=== PATIENT | male | born 2005 | race Caucasian/White ===

== ENCOUNTER 2023-08-23 18:03 | Outpatient (CLI) | payer BC, MEDICAID, SELFPAY | END 2023-08-23 18:04 | disposition home or self-care (01) | LOC: LKVREF 18:03 | PROVIDERS: PCP Pediatrics; Visit Provider Physician Assistant | DX: R50.9 Fever, unspecified (principal); R21 Rash and other nonspecific skin eruption; L03.90 Cellulitis, unspecified | CPT/HCPCS: 86618 ==

== ENCOUNTER 2023-08-23 23:07 | Emergency (ER) | payer BC, MEDICAID, SELFPAY ==
[2023-08-23 23:11] VITALS: BP 117/81; PULSE 98; RESP 16; TEMP 37.9; O2SAT 98; BMI 17.7
--- NOTE | 2023-08-23 23:35 | ED_ITS ---
HPI - Fever General Time Seen by Provider: 23:35 Date Seen: 08/23/23 Chief Complaint: Fever Stated Complaint: Fever Time Seen by Provider: 08/23/23 23:34 Source: patient, family, RN notes reviewed and old records reviewed Mode of arrival: ambulatory Limitations: no limitations History of Present Illness HPI Narrative: Samuel is a very pleasant 17-year-old gentleman previously healthy who comes to the emergency room for a 2nd opinion in regards to a rash in fevers. Patient is also concerned about some neck pain. Samuel states 1 week ago he had a very large golf ball size lymph node in his right groin. He had no urinary symptoms but did develop cold-like symptoms which she describes as a fever. He had no runny nose cough sore throat or ear pain. He notes that he has been running a fever up to 102 at times intermittently over the last week. He notes that he had sustained many bug bites after exploring caves and being outside in the rain 1 week ago. Those bug bites which continue to be itchy have now become very red on his whole body. He has a oval-shaped rash on his abdomen and the area on his groin where the large lymph node had been is red. The swelling of the lymph node has receded somewhat. Patient notes that he does have a headache and when E occasionally coughs that seems to be worse. He has some neck pain but he is able to move his neck freely. Patient was seen this morning at urgent care at which time he was given doxycycline and had blood drawn to include a CBC and a Lyme titer. He has not yet started on his doxycycline and would like a 2nd opinion. Related Data Previous Rx's ?Medication ?Instructions ?Recorded doxycycline hyclate 100 mg capsule 100 mg PO BID 14 days #28 caps 08/23/23 Allergies Allergy/AdvReac Type Severity Reaction Status Date / Time pitted Dates AdvReac Severe Anaphylaxis Uncoded 08/23/23 17:25 Review of Systems Status of ROS Reports: 10 or more systems reviewed and unremarkable except as noted in History and below Const Reports: fever and fatigue Eyes Denies: change in vision ENMT Reports: neck pain (Stiffness more than pain); Denies: throat pain, difficulty swallowing or nasal congestion Cardio Denies: chest pain or shortness of breath with exertion Resp Denies: shortness of breath or cough GI Denies: abdominal pain, nausea, vomiting, diarrhea or difficulty swallowing Denies: painful urination or urinary frequency Musculo Reports: neck pain (Stiffness more than pain); Denies: back pain Integ/Breast Reports: rash, itching and redness Neuro Reports: headache (Mild) Endo Reports: fatigue PFSH [facility] Social History Smoking Status: Never smoker service: No Exam Narrative Exam Narrative: Alert and oriented. Nontoxic in appearance. Eyes are clear. Oral cavity with moist mucous membranes. Neck is supple. No lymphadenopathy. Range of motion is full with no stiffness. No meningeal signs with negative straight leg raise. Patient is able to put chin to chest and look up at light without any evidence of photophobia. Heart with regular rate and rhythm and lungs are clear to auscultation. Abdomen soft nontender. Patient has area of lymphadenopathy mild right groin. He has a large area of erythema extending across the entire groin onto the left hip. This is a had rectangle in shape. It is not excessively warm to the touch it is well demarcated. On his right abdomen he has an ovoid shaped area of erythema that is resembling a bull's-eye. This is measuring 4- 1/2 x 8 cm. This is very subtle. He has other areas of erythema with a central area that appears to be elevated such as would occur with a bug bite. No LAD cervical, axillary. Const Vital Signs, click to edit/add: Vital Signs - 24 hr 08/23/23 23:11 08/24/23 00:30 08/24/23 01:16 Temperature 100.2 F H Pulse Rate [Left Pulse Oximeter] 98 68 68 Respiratory Rate 16 16 16 Blood Pressure [Right Upper Arm] 117/81 113/69 108/74 Pulse Oximetry 98 99 100 Oxygen Delivery Method Room Air Room Air Room Air Documenting provider has reviewed patient's vital signs: yes Course Course ED Course: Differential diagnosis includes but is not limited to Lyme disease, West Nile, other viral infection. He has no meningeal signs in spite of his complain of neck stiffness any is full range of motion and thus I do not think we are dealing with meningitis. Will check labs not done this morning to include comprehensive, CRP, West Nile, urinalysis, GC chlamydia. An EKG is ordered for baseline. Will give 1L NS fluids, Toradol for discomfort. Reevaluation(s) Reevaluation #1: Patient has had resolution of his headache. He did receive fluids. At this time will have him take his dose of doxycycline as I strongly suspect that this is Lyme disease. Vital Signs Vital signs: Initial Vital Signs Temperature 100.2 F H 08/23/23 23:11 Temperature Source Temporal Artery Scan 08/23/23 23:11 Pulse Rate 98 08/23/23 23:11 Pulse Rhythm Regular 08/23/23 23:11 Respiratory Rate 16 08/23/23 23:11 Blood Pressure 117/81 08/23/23 23:11 Blood Pressure Mean 93 08/23/23 23:11 Blood Pressure Position Sitting 08/23/23 23:11 Pulse Oximetry 98 08/23/23 23:11 Oxygen Delivery Method Room Air 08/23/23 23:11 Vital Signs Temperature 100.2 F H 08/23/23 23:11 Pulse Rate 98 08/23/23 23:11 Respiratory Rate 16 08/23/23 23:11 Blood Pressure 117/81 08/23/23 23:11 Pulse Oximetry 98 08/23/23 23:11 Oxygen Delivery Method Room Air 08/23/23 23:11 Temperature 100.2 F H 08/23/23 23:11 Pulse Rate 68 08/24/23 01:16 Respiratory Rate 16 08/24/23 01:16 Blood Pressure 108/74 08/24/23 01:16 Pulse Oximetry 100 08/24/23 01:16 Oxygen Delivery Method Room Air 08/24/23 01:16 Medications Administered Medications: Discontinued Medications Generic Name Dose Route Start Last Admin Trade Name Freq PRN Reason Stop Dose Admin Sodium Chloride 1,000 mls @ 1,000 mls/hr 08/23/23 23:38 08/24/23 01:00 0.9 % Sodium Chloride 1000 Ml IV 08/24/23 00:37 Infused .Q1H ALFREDO Infusion Ketorolac Tromethamine 15 mg 08/23/23 23:38 08/24/23 00:00 Ketorolac 15 Mg/Ml Inj IVP 08/23/23 23:39 15 mg ONCE ONE Administration MDM - Fever MDM Narrative Medical decision making narrative: 1. Concern for Lyme disease-bull's-eye rash on right abdomen all suspicious for Lyme. I have asked patient to start the doxycycline which she has with him from his earlier old urgent care visit. Patient has a 14 day course of treatment. I have added a tick-borne panel to patient's lab orders. He did have Lyme done this morning at the clinic. We have also added West Nile. 2. Neck stiffness-this is subjective and patient has no meningeal signs here in the emergency room. Further his white count is normal. CRP is elevated at 7.1. Patient is entirely nontoxic in appearance. Toradol has relieved his headache any is feeling better. He also received 1 L of normal saline. 3. Right groin lymphadenopathy-erythema noted. Not exactly cellulitic type appearance. Have added GC chlamydia to this gentleman's urine. Although I suspect that is more related to his illness which I believe is tick-borne. 4. Disposition-home at this time. Rest push fluids. Ibuprofen or Tylenol as needed for discomfort. Await the tick panel and Lyme a results. Seek medical attention for worsening symptoms. I will have this gentleman follow up with his primary MD in a week's time to ensure resolution of the lymphadenopathy and improvement of his symptoms. Lab Data Attestation: I reviewed the patient's lab results. Labs: Lab Results 08/24/23 08/24/23 08/24/23 Range/Units 00:00 01:08 01:11 WBC 9.80 (4.50-11.00) K/uL RBC 5.72 (4.30-5.90) m/uL Hgb 16.9 (13.5-17.5) gm/dL Hct 49.2 (37.0-53.0) % MCV 86 (80-100) fL MCH 30 (26-34) pg MCHC 34 (32-36) gm/dL RDW Coeff of Eugenio 11.9 (11.5-15.5) % Plt Count 279 (140-440) K/uL Neut % (Auto) 74.8 H (42.0-72.0) % Lymph % (Auto) 16.0 L (20-44) % Divide % (Auto) 8.6 (0.0-11.0) % Eos % (Auto) 0.3 (0.0-7.0) % Baso % (Auto) 0.1 (0.0-3.0) % Neut # (Auto) 7.30 H (1.7-7.0) K/uL Lymph # (Auto) 1.60 (0.90-2.90) K/uL Divide # (Auto) 0.80 (0.00-0.90) K/UL Eos # (Auto) 0.03 (0.00-0.50) K/uL Baso # (Auto) 0.01 (0.00-0.30) K/uL Abs Immat Gran (auto) 0.02 (0.00-0.30) K/uL Imm/Tot Granulo (auto) 0.2 % Sodium 140 (135-149) mmol/L Potassium 3.9 (3.6-5.1) mmol/L Chloride 104 (96-114) mmol/L Carbon Dioxide 23 (20-32) mmol/L Anion Gap 13 (7-15) mEq/L BUN 11 (5-24) mg/dL Creatinine 0.6 (0.6-1.2) mg/dL Estimated Creat Clear 127.30 Estimated GFR 143 ml/min Glucose 102 (60-115) mg/dL Calcium 9.4 (8.7-10.8) mg/dL Total Bilirubin 1.1 (0.1-1.5) mg/dL AST 46 H (12-35) U/L ALT 30 (4-50) U/L Alkaline Phosphatase 84 (65-260) U/L C-Reactive Protein 7.1 H (0.5-1.0) mg/dL Total Protein 8.5 H (6.0-8.3) g/dL Albumin 5.1 H (3.3-5.0) g/dL Urine Color (Yellow) Urine Appearance (Clear) Urine pH (5.0-8.5) Ur Specific [place] (1.000-1.030) Urine Protein (Negative) Urine Glucose (UA) (Negative) Urine Ketones (Negative) Urine Blood (Negative) Urine Nitrite (Negative) Urine Bilirubin (Negative) Urine Urobilinogen (0.2-1.0) Ur Leukocyte Esterase (Negative) Urine RBC (0-2) Urine WBC (0-5) Ur Squamous Epith Cells (None-Few) Amorphous Sediment (None) Urine Bacteria (None) Urine Mucus (None) C.trachomatis Ampl DNA (No Detected) N.gonorrhoeae Ampl DNA (No Detected) Lab Acknowledgement Test Added Test Added 08/24/23 Range/Units 01:50 WBC (4.50-11.00) K/uL RBC (4.30-5.90) m/uL Hgb (13.5-17.5) gm/dL Hct (37.0-53.0) % MCV (80-100) fL MCH (26-34) pg MCHC (32-36) gm/dL RDW Coeff of Eugenio (11.5-15.5) % Plt Count (140-440) K/uL Neut % (Auto) (42.0-72.0) % Lymph % (Auto) (20-44) % Divide % (Auto) (0.0-11.0) % Eos % (Auto) (0.0-7.0) % Baso % (Auto) (0.0-3.0) % Neut # (Auto) (1.7-7.0) K/uL Lymph # (Auto) (0.90-2.90) K/uL Divide # (Auto) (0.00-0.90) K/UL Eos # (Auto) (0.00-0.50) K/uL Baso # (Auto) (0.00-0.30) K/uL Abs Immat Gran (auto) (0.00-0.30) K/uL Imm/Tot Granulo (auto) % Sodium (135-149) mmol/L Potassium (3.6-5.1) mmol/L Chloride (96-114) mmol/L Carbon Dioxide (20-32) mmol/L Anion Gap (7-15) mEq/L BUN (5-24) mg/dL Creatinine (0.6-1.2) mg/dL Estimated Creat Clear Estimated GFR ml/min Glucose (60-115) mg/dL Calcium (8.7-10.8) mg/dL Total Bilirubin (0.1-1.5) mg/dL AST (12-35) U/L ALT (4-50) U/L Alkaline Phosphatase (65-260) U/L C-Reactive Protein (0.5-1.0) mg/dL Total Protein (6.0-8.3) g/dL Albumin (3.3-5.0) g/dL Urine Color Yellow (Yellow) Urine Appearance Clear (Clear) Urine pH 6.5 (5.0-8.5) Ur Specific [place] >= 1.030 (1.000-1.030) Urine Protein 1+ A (Negative) Urine Glucose (UA) Negative (Negative) Urine Ketones 3+ A (Negative) Urine Blood Negative (Negative) Urine Nitrite Negative (Negative) Urine Bilirubin 1+ A (Negative) Urine Urobilinogen 0.2 (0.2-1.0) Ur Leukocyte Esterase Negative (Negative) Urine RBC 0-2 (0-2) Urine WBC 2-5 (0-5) Ur Squamous Epith Cells Moderate A (None-Few) Amorphous Sediment Few A (None) Urine Bacteria Moderate A (None) Urine Mucus Moderate A (None) C.trachomatis Ampl DNA NOT DETECTED (No Detected) N.gonorrhoeae Ampl DNA NOT DETECTED (No Detected) Lab Acknowledgement ECG Data Attestation: I personally reviewed and interpreted this ECG as follows: ECG interpretation date: 08/24/23 Interpretation: EKG by my read shows sinus rhythm at a rate of 78. Early repolarization is noted otherwise no acute ST or T-wave changes. QT and DE intervals within normal limits. Discharge Plan Discharge Clinical Impression: Lyme borreliosis Patient Disposition: Home, Self-Care Condition: Improved Additional Instructions: Continue to take doxycycline for the full course even when you are feeling better. I would like you to follow-up at the clinic in the next 5-7 days for recheck. Be sure to call for an appointment tomorrow. Recommend ibuprofen or Tylenol as needed for discomfort. I have added additional tests on for tick-borne illnesses in addition to Lyme as well as West Nile which is spread by mosquitos. I have also added some urinary test for the lymph node swelling but I suspect this is likely related to the underlying tick borne illness. Try to push fluids as much as possible. Return to the emergency room if you are worsening. Prescriptions: No Action doxycycline hyclate 100 mg capsule 100 mg PO BID 14 Days Qty: 28 0RF Follow Up/Referrals: Shira Luna DO [Referring] - Stand Alone [facility] Inst[facility]
[2023-08-24] MEDS: 0.9 % SODIUM CHLORIDE 1000 ml 1,000 ML IV
[2023-08-24] MEDS: KETOROLAC 15 MG/ML inj IVP
[2023-08-24 00:08] LABS: Basophils Absolute Auto 0.01 K/uL (0.00-0.30); Basophils Percent Auto 0.1 % (0.0-3.0); Eosinophils Absolute Auto 0.03 K/uL (0.00-0.50); Eosinophils Percent Auto 0.3 % (0.0-7.0); Hematocrit 49.2 % (37.0-53.0); Hemoglobin* 16.9 gm/dL (13.5-17.5); Immature Granulocytes Abs Auto 0.02 K/uL (0.00-0.30); Immature Granulocytes Pct Auto 0.2 %; Mean Corpuscular HGB Conc 34 gm/dL (32-36); Mean Corpuscular Hemoglobin 30 pg (26-34); Mean Corpuscular Volume 86 fL (80-100); Monocytes Percent Auto 8.6 % (0.0-11.0); Neutrophils Percent Auto 74.8 % (42.0-72.0); Platelet Count* 279 K/uL (140-440); RDW Coefficient of Variation % 11.9 % (11.5-15.5); Red Blood Count 5.72 m/uL (4.30-5.90)
[2023-08-24 00:15] LABS: Slide Review Reflex No
[2023-08-24 00:24] LABS: Albumin* 5.1 g/dL (3.3-5.0); Chloride* 104 mmol/L (96-114)
[2023-08-24 00:25] LABS: Potassium* 3.9 mmol/L (3.6-5.1); Sodium* 140 mmol/L (135-149)
[2023-08-24 00:27] LABS: Anion Gap 13 mEq/L (7-15); Aspartate Amino Transferase* 46 U/L (12-35); Bilirubin Total* 1.1 mg/dL (0.1-1.5); Carbon Dioxide* 23 mmol/L (20-32); Creatinine* 0.6 mg/dL (0.6-1.2); Estimated Glomerular Filt Rate 143 ml/min; Total Protein* 8.5 g/dL (6.0-8.3)
[2023-08-24 00:28] LABS: Alanine Aminotransferase* 30 U/L (4-50); Alkaline Phosphatase* 84 U/L (65-260); Blood Urea Nitrogen* 11 mg/dL (5-24); Calcium* 9.4 mg/dL (8.7-10.8); Glucose* 102 mg/dL (60-115)
[2023-08-24 00:30] VITALS: BP 113/69; PULSE 68; RESP 16; O2SAT 99
--- NOTE | 2023-08-24 01:12 | ED.NURSE ---
pt given sandwich, applesauce and water to take with his medication.
[2023-08-24 01:16] VITALS: BP 108/74; PULSE 68; RESP 16; O2SAT 100
[2023-08-24 01:35] LABS: C Reactive Protein* 7.1 mg/dL (0.5-1.0)
[2023-08-24 02:00] LABS: Appearance Urine Clear (Clear); Bilirubin Urine 1+ (Negative); Blood Urine Negative (Negative); Color Urine Yellow (Yellow); Glucose Urine Negative (Negative); Ketones Urine 3+ (Negative); Leukocyte Esterase Urine Negative (Negative); Nitrite Urine Negative (Negative); Protein Urine 1+ (Negative); Specific Gravity Urine >= 1.030 (1.000-1.030); Urobilinogen Urine 0.2 (0.2-1.0); pH Urine 6.5 (5.0-8.5)
[2023-08-24 02:07] LABS: Amorphous Sediment Urine Few; Bacteria Urine Moderate; Mucus Urine Moderate; RBC Urine 0-2 (0-2); Squamous Epithelial Cell Urine Moderate (None-Few)
[2023-08-24 03:28] LABS: Chlamydia DNA Amplified* NOT DETECTED (No Detected); GC DNA Amplified* NOT DETECTED (No Detected)
[2023-08-26 22:51] LABS: Anaplasma phagocyt PCR Not Detected; Babesia microti by PCR Not Detected; Babesia species by PCR Not Detected; Ehrlichia chaffeensis by PCR Not Detected; Ehrlichia ewingii/canis by PCR Not Detected; Ehrlichia muris-like by PCR Not Detected
== END 2023-08-24 02:07 | disposition home or self-care (01) ==
PROVIDERS: Emergency Provider Family Medicine
DX: A69.20 Lyme disease, unspecified (principal)
CPT/HCPCS: 36415; 80053; 81001; 85025; 86140; 86618; 86789; 87086; 87468; 87469; 87484; 87491; 87591; 87798; 93005; 96361; 96374; 99284; 99285; J1885; J7030

== ENCOUNTER 2024-11-10 01:55 | Emergency (ER) | payer OTHER, SELFPAY ==
--- OUTSIDE RECORDS SUMMARY | 2024-11-10 01:58 | XMS_ITS | Clinical Summary ---
Author Organization [facility] Address [address] [place] [address] Care Team Providers Care Barrel Waterer Name Role Phone Shira Luna DO Primary Care Provider [phone] Allergies Active Allergy Reactions Criticality Noted Date Comments Sheila Coreas 08/23/2023 Medications No known medications Active Problems Problem Noted Date Diagnosed Date Liver injury 12/30/2018 Acetaminophen overdose, inte ntional self-harm, initial encounter 12/27/2018 Social History Tobacco Use Types Packs/Day Years Used Date Smoking Tobacco: Never Smokeless Tobacco: Never Tobacco Cessation:Counseling Given: Not Answered Adolescent Education Answer Date Record ed Getting School Help Needed Not on file 08/22 Sex and Gender Information Value Date Recorded Sex Assigned at Not on file Legal Sex Male 3:22 PM CDT Gender Identity Not on file Sexual Orientation Not on file Last Filed Vital Signs Vital Sign Reading Time Taken Comments Blood Pressure 125/76 08/03/2024 6:00 PM CDT Pulse 99 08/03/2024 6:00 PM CDT Temperature 38.3 C (100.9 F) 08/03/2024 6:00 PM CDT Respiratory Rate 16 08/03/2024 6:00 PM CDT Oxygen Saturation 97% 08/03/2024 6:00 PM CDT Inhaled Oxygen Concentration - - Weight 50 kg (110 lb 3.2 oz) 08/03/2024 6:00 PM CDT Height 162.6 cm (5' 4) 08/03/2024 6:00 PM CDT Body Mass Index 18.92 08/03/2024 6:00 PM CDT Plan of Treatment Health Maintenance Due Date Last Done Comments ADVANCE CARE PLANNING 2003 ANNUAL REVIEW OF HM ORDERS 2003 YEARLY PREVENTIVE VISIT 11/17/2006 HPV VACCINE (2 - Male 2-dose series) 08/02/2016 02/02/2016 HIV SCREENING 11/17/2018 MENINGITIS B VACCINE (1 of 2 - Standard) 2019 HEPATITIS C SCREENING 11/17/2021 PHQ-2 (once per calendar year) 2024 COVID-19 VACCINE (3 - season) 2024 07/15/2020, 06/28/2020 INFLUENZA VACCINE (#1) 2024 9, 06/06/2006, 02/02/2006 DTAP/TDAP/TD VACCINE (7 - Td or Tdap) 02/01/2026 02/02/2016, 10/25/2008, 06/06/2006, Additional history exists ZOSTER VACCINE (1 of 2) 11/17/2053 HEPATITIS B VACCINE Completed 05/06/2005, 07/01/2004, 04/27/2004, Additional history exists PNEUMOCOCCAL VACCINE: PEDIATRICS (0 to 5 YEARS) AND AT-RISK PATIENTS (6 to 49 YEARS) Aged Out 05/06/2005, 07/01/2004, 04/27/2004, Additional history exists No longer eligible based on patient's age to complete this topic MENINGITIS VACCINE Aged Out 02/02/2016 No longer eligible based on patient's age to complete this topic Insurance [place] OF [place] [facility] Care Teams Barrel Waterer Relationship Specialty Start Date End Date Shira Luan DO [facility] [id number] [place] [address] PCP - General 08/24/17
[2024-11-10 02:00] VITALS: BP 132/80; PULSE 100; RESP 20; TEMP 36.9; O2SAT 99; BMI 18.9
--- NOTE | 2024-11-10 02:05 | ED.GENADULT ---
HPI - General Adult General Chief complaint: Shortness of Breath/Dyspnea Stated complaint: shortness of breath Time Seen by Provider: 11/10/24 02:00 History of Present Illness HPI narrative: CC: Shortness of Breath pt. with shortness of breath that started around 1900 11/09/24. denies cough, fevers. 18-year-old young man presenting to the emergency department with concern shortness of breath. Infers initially that he does have asthma. Seems to have started around 7:00 p.m. about 7 hours prior to presentation here today. During further conversation though he does offer that at around 4:00 p.m. he had done a small amount of cocaine and then around 5:00 p.m. took without was ketamine. It burned in a way that was unexpected more like MDMA he thought. Called the person he got it from who assured him that it was real ketamine. He notes that typically does not use anything but marijuana but has tried a variety of substances over the years. He says he is not usually this careless. Is not really having chest pain. Does endorse that his heart is beating hard. Related Data Previous Rx's ?Medication ?Instructions ?Recorded dextroamphetamine-amphetamine 20 20 mg PO QDAY #30 tabs 11/09/24 mg tablet Allergies Allergy/AdvReac Type Severity Reaction Status Date / Time pitted Dates AdvReac Severe Anaphylaxis Uncoded 08/08/24 09:54 Review of Systems Status of ROS: Reports: 6 or more systems reviewed and unremarkable except as noted in History and below [facility] Medical History History of Lyme disease ?Z86.19 - Personal history of other infectious and parasitic diseases (ICD-10) Social History Smoking Status: Current some day smoker Do you use any of these nicotine containing products: Vaping Products Second hand tobacco smoke exposure: No How often do you have a drink containing alcohol: never AUDIT-C Alcohol total score: 0 Non-prescribed substance use: marijuana (any form) service: No Exam Narrative: Exam Narrative: Calm. Intermittent eye contact. At times a little distracted in conversation. Speaks quietly. Hair is dark with bleached patch in the left front. Pupils are 4 mm and equal. Skin is warm and dry without lesions. Lungs are clear. Heart is in an elevated to tachycardic rate. No murmur rub or gallop. Does appear to be hyperdynamic. Equal pulses in upper extremities. Oropharynx is unremarkable. Const: Vital Signs, click to edit/add: Vital Signs - 24 hr 11/10/24 02:00 11/10/24 05:09 11/10/24 05:10 Temperature 98.4 F 98.4 F 98.4 F Pulse Rate [Right Pulse Oximeter] 100 98 98 Respiratory Rate 20 20 20 Blood Pressure [Ri ght Upper Arm] 132/80 129/74 129/74 Pulse Oximetry 99 99 Oxygen Delivery Me thod Room Air Room Air Documenting provider has reviewed patient's vital signs: yes Course Vital Signs Vital signs: Initial Vital Signs Respiratory Effort Normal, Spontaneous, Non-Labored 11/10/24 01:56 Respiratory Depth Normal 11/10/24 01:56 Respiratory Pattern Normal 11/10/24 01:56 Vital Signs Temperature 98.4 F 11/10/24 02:00 Pulse Rate 100 11/10/24 02:00 Respiratory Rate 20 11/10/24 02:00 Blood Pressure 132/80 11/10/24 02:00 Pulse Oximetry 99 11/10/24 02:00 Oxygen Delivery Method Room Air 11/10/24 02:00 Temperature 98.4 F 11/10/24 05:10 Pulse Rate 98 11/10/24 05:10 Respiratory Rate 20 11/10/24 05:10 Blood Pressure 129/74 11/10/24 05:10 Pulse Oximetry 99 11/10/24 05:09 Oxygen Delivery Method Room Air 11/10/24 05:09 Medical Decision Making MDM Narrative Medical decision making narrative: Symptoms do not seem inconsistent with substance use as discovered. Exacerbating or contributing to tachycardia or hard heartbeat. Vitals otherwise are good. He is not hypoxic. I do not think further intervention is needed. Perhaps a period of monitoring. Did offer U tox for further investigation of what might have been ingested today. He would like to pursue that. Monitored on obstetrician/gynecologist during time in the emergency department. Urinalysis is positive for amphetamines, methamphetamines, benzodiazepines, cocaine and marijuana. Fed a means are prescribed. Benzodiazepines and methamphetamine apparently is a surprise. He admits he was worried that when he took might of been cut with methamphetamine No further events during time of monitoring in the emergency department. Otherwise he does begin to feel better. Stable vitals. No longer tachycardic. Ask about dispensing naloxone. He apparently does have a couple kits both intranasal and IV. I do have concerns about longer standing and more significant substance use. Cautioned. Yeah. Please be careful out there. Consider going to NA or similar. Do keep a Narcan kit with you. Lab Data Lab results reviewed: Yes I reviewed the patient's lab results Labs: Lab Results 11/10/24 Range/Units 04:10 Urine Opiates Screen Negative (Negative) Ur Buprenorphine Scrn Negative (Negative) Ur Oxycodone Screen Negative (Negative) Urine Methadone Screen Negative (Negative) Ur Barbiturates Screen Negative (Negative) U Tricyclic Antidepress Negative (Negative) Ur Phencyclidine Scrn Negative (Negative) Ur Amphetamines Screen POSITIVE A (Negative) U Methamphetamines Scrn POSITIVE A (Negative) U Benzodiazepines Scrn POSITIVE A (Negative) Urine Cocaine Screen POSITIVE A (Negative) U Marijuana (THC) Screen POSITIVE A (Negative) Ur Drug Screen Comment See Note ECG Data Attestation: I personally reviewed and interpreted this ECG as follows: (Sinus tachycardia at 121) Discharge Plan Discharge Clinical Impression: Substance use, Tachycardia Patient Disposition: Home, Self-Care Condition: Improved Additional Instructions: Yeah. Please be careful out there. Consider going to NA or similar. Do keep a Narcan kit with you. Prescriptions: No Action dextroamphetamine-amphetamine 20 mg tablet 20 mg PO QDAY Qty: 30 0RF Follow Up/Referrals: Jb Santo MD [Primary Care Provider, Family Practice] Stand Alone Forms: [email or web address] Info Instructions
[2024-11-10 04:26] LABS: Cannabinoid Screen Urine POSITIVE (Negative); Methamphetamines Screen Urine POSITIVE (Negative); Tricyclic Antidepressant Urine Negative (Negative)
[2024-11-10 05:09] VITALS: BP 129/74; PULSE 98; RESP 20; TEMP 36.9; O2SAT 99
[2024-11-10 05:10] VITALS: BP 129/74; PULSE 98; RESP 20; TEMP 36.9
== END 2024-11-10 05:10 | disposition home or self-care (01) ==
PROVIDERS: Emergency Provider Family Medicine; PCP Family Medicine
DX: F15.90 Other stimulant use, unspecified, uncomplicated (principal); R00.0 Tachycardia, unspecified
CPT/HCPCS: 80306; 93005; 99284